=== PATIENT | male | born 2000 | race Caucasian/White ===

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

== ENCOUNTER 2022-07-06 18:02 | Emergency (ER) | payer MEDICAID, OTHER ==
[~2022-07-06] VITALS: Ht 172.7 cm; Wt 118.2 kg
[~2022-07-06 18:02] MED LIST: QUET200T PO; SERT-158 PO
[2022-07-06 18:11] VITALS: BP 123/77
[2022-07-06] MEDS ORDERED: CEPH-558 PO (18:12)
[2022-07-06] MEDS ORDERED: IBUP-1554 PO (18:12)
[2022-07-06] MEDS ORDERED: ACET-66 PO (18:12)
[2022-07-06] MEDS ORDERED: GUAIFDM PO (18:12)
== END 2022-07-06 18:24 | disposition home or self-care (01) ==
LOC: EMS 18:07
DX: H66.92 Otitis media, unspecified, left ear (principal); J06.9 Acute upper respiratory infection, unspecified; B30.9 Viral conjunctivitis, unspecified; F32.A Depression, unspecified; Z87.891 Personal history of nicotine dependence
CPT/HCPCS: 99282; Z7502

== ENCOUNTER 2023-02-13 15:41 | Emergency (ER) | payer MEDICAID ==
[~2023-02-13] VITALS: Ht 170.2 cm; Wt 109.1 kg
[~2023-02-13 15:41] MED LIST changes: +ACET-66 PO; +CEPH-558 PO; +GUAIFDM PO; +IBUP-1554 PO
[2023-02-13 15:42] VITALS: TEMP 97.9
[2023-02-13] MEDS ORDERED: IBUPROFEN 600 MG TABLET PO ONE (16:45)
[2023-02-13] MEDS ORDERED: ACETAMINOPHEN 500 MG TABLET PO ONE (16:45)
[2023-02-13 17:10] LABS: COVID AG,FIA SOURCE NASAL SWAB
[2023-02-13 17:52] LABS: SARS-COV2 (COVID) ANTIGEN,FIA Negative (Negative)
[2023-02-13 17:58] LABS: INFLUENZA TYPE A NEGATIVE FOR TYPE A (NEGATIVE); INFLUENZA TYPE B NEGATIVE FOR TYPE B (NEGATIVE)
[2023-02-13 18:10] VITALS: BP 125/75; PULSE 79; RESP 17
== END 2023-02-13 18:25 | disposition home or self-care (01) ==
LOC: EMS 15:42
DX: J06.9 Acute upper respiratory infection, unspecified (principal); R51.9 Headache, unspecified; F32.A Depression, unspecified; Z87.891 Personal history of nicotine dependence; Z20.822 Contact with and (suspected) exposure to COVID-19
CPT/HCPCS: 87804; 99283